=== PATIENT | male | born 1990 | race Caucasian/White ===

== ENCOUNTER → 2018-08-15 | Outpatient (CLI) | payer OTHER ==
--- NOTE | 2018-08-15 13:20 | KCIC ---
LUMBAR SPINE 2-3V, CERVICAL SPINE 2-3V 08/15/2018 12:00 AM INDICATION: Left hip pain, headaches COMPARISON: None available. TECHNIQUE: AP, odontoid and lateral views of the cervical spine are provided. 3 views of the lumbosacral spine are provided. FINDINGS: Cervical: Alignment of the cervical spine is normal. Vertebral body heights are maintained. There is mild disc height loss at C5-C6. Mild facet arthropathy at C5-C6 and C6-C7. Lateral masses of C1 articulate appropriately with the C2 vertebral body. There is no prevertebral soft tissue swelling. No acute fracture. No significant uncovertebral joint disease. Lumbar: There are 5 nonrib-bearing lumbar type vertebral bodies. Left lateral marginal osteophytosis is identified at L4-L5. Transverse processes appear intact. Sagittal alignment is maintained. Vertebral body heights are maintained. No acute fracture is identified. Disc heights are maintained. Visualized portions of the sacrum appear intact. Spinous processes are intact. IMPRESSION: 1. No acute fracture or malalignment of the cervical and lumbar spine. 2. Mild cervical spondylosis centered at C5-C6. Electronically signed by: Gretchen Whaley MD (08/15/2018 1:17 PM) [id number]
== END | disposition home or self-care (01) ==
LOC: KCIC 12:43
PROVIDERS: ATTEND Chiropractor
DX: M47.812 Spondylosis without myelopathy or radiculopathy, cervical region (principal); M12.88 Other specific arthropathies, not elsewhere classified, other specified site; M25.78 Osteophyte, vertebrae
CPT/HCPCS: 72040; 72100